=== PATIENT | female | born 1965 | race Caucasian/White ===

== ENCOUNTER → 2019-12-16 10:17 | Outpatient (CLI) | payer OTHER, SELFPAY ==
--- NOTE | 2019-12-16 10:21 | DI.RAD.S_ITS ---
PROCEDURE: XR FOOT LT MIN 3V INDICATIONS: pain in left foot TECHNIQUE: 3 views of the foot were acquired. COMPARISON: None. FINDINGS: Bones: Comminuted fracture of the distal 1/3 shaft of the 5th metatarsal. Spiral fracture of the 4th metatarsal with small butterfly fragment. No 4th metatarsal fracture is mildly displaced. No suspicious bony lesions. Hallux valgus deformity. Soft tissues: Soft tissue swelling at the lateral aspect of the foot. No tibiotalar joint effusion. Achilles tendon appears normal. IMPRESSION: Comminuted 4th and 5th metatarsal fractures. Dictated by: Kalia Corbin M.D. on 12/16/2019 at 9:54 Approved by: Kalia Corbin M.D. on 12/16/2019 at 9:57
== END ==
PROVIDERS: Referring Provider Nurse Practitioner; Visit Provider Nurse Practitioner
DX: M79.672 Pain in left foot (principal); S92.352A Displaced fracture of fifth metatarsal bone, left foot, initial encounter for closed fracture; S92.342A Displaced fracture of fourth metatarsal bone, left foot, initial encounter for closed fracture
CPT/HCPCS: 73630

== ENCOUNTER → 2023-10-17 08:15 | Outpatient (CLI) | payer OTHER, SELFPAY ==
[2023-10-17 09:13] LABS: Influenza A - CEPHEID Flu A NEGATIVE (NEGATIVE); Influenza B - CEPHEID Flu B NEGATIVE (NEGATIVE); Respiratory Syncytial Virus Negative (Negative)
[2023-10-17 09:15] LABS: COVID-19 CEPHEID 4-PLEX PCR Negative (Negative)
== END ==
PROVIDERS: Visit Provider Nurse Practitioner Family
DX: R21 Rash and other nonspecific skin eruption (principal)
CPT/HCPCS: 0241U; 87070; 87077; 87147; 87205; 87252